=== PATIENT | female | born 1955 | race Caucasian/White ===

== ENCOUNTER → 2017-04-12 | Outpatient (REF) | payer BC ==
[~2017-04-12] MED LIST: ACID1CAP PO; ADVA115A INH; ALBU17IN INH; ASPI1TAB PO; ATOR1TAB21 PO; CALC600T57 PO; CINN500T PO; DIOV160T8 PO; DRIS50002 PO; ESTR1TAB PO; ESTR1TAB3 PO; GLIP10TA6 PO; JANU100T PO; LEVAINH INH; MAGN400T5 PO; MECL-68 PO; METF500T13 PO; MUCI600T37 PO; MULTCAP PO; OMEG100011 PO; OMEP20CA3 PO; OSPH1TAB PO; SING10TA32 PO; VITA200038 PO; VITA500C24 PO; XYZA5TAB2 PO
== END ==
LOC: M SFHCWAGY 08:28
PROVIDERS: ATTEND Nurse Practitioner Women's Health
DX: Z12.4 Encounter for screening for malignant neoplasm of cervix (principal)

== ENCOUNTER → 2017-04-14 | Outpatient (CLI) | payer BC ==
--- NOTE | 2017-04-14 09:18 | REPMRS ---
Patient History The patient states she had a clinical breast exam in 04/15 Patient is postmenopausal, has history of other cancer at age 46, and is nulliparous. Family history of prostate cancer in father at age 50 or over and colorectal cancer in mother at age 50 or over. Taking estrogen for 15 years. Digital Woman Screen Mammo: April 14, 2017 - Exam #: [id number] Bilateral CC and MLO view(s) were taken. Technologist: Jania Fried, Technologist Prior study comparison: April 27, 2016, digital woman screen mammo performed at [facility] [facility]. April 14, 2015, digital woman screen mammo performed at [facility] [employer] [facility]. FINDINGS: There are scattered fibroglandular densities. There has been no change in the appearance of the mammogram from the prior studies. There is a mild amount of residual fibroglandular tissue which is fairly symmetric. There is no interval development of dominant mass, architectural distortion, or clustered microcalcification suggestive of malignancy. ASSESSMENT: BI-RADS/ACR category 1 mammogram. Negative. Recommendation Routine screening mammogram in 1 year (for women over age 40). This mammogram was interpreted with the aid of an FDA-approved computer-aided dectection system. Electronically Signed By: Giorgio Murrell MD 04/14/17 0939
== END ==
LOC: M WHC 06:28
PROVIDERS: ATTEND Nurse Practitioner Women's Health
DX: Z12.31 Encounter for screening mammogram for malignant neoplasm of breast (principal); Z78.0 Asymptomatic menopausal state; Z79.890 Hormone replacement therapy

== ENCOUNTER → 2017-05-26 | Outpatient (REF) | payer BC ==
[2017-05-26 11:23] LABS: ALBUMIN 3.8 GM/DL (3.2-5.2); ALBUMIN/GLOBULIN RATIO 1.23 (1.00-1.93); ALKALINE PHOSPHATASE 62 U/L (45-117); ALT/SGPT 28 U/L (12-78); ANION GAP 9 MEQ/L (8-16); AST/SGOT 20 U/L (7-37); BILIRUBIN,TOTAL 0.4 MG/DL (0.2-1.0); BLOOD UREA NITROGEN 17 MG/DL (7-18); CALCIUM LEVEL 8.6 MG/DL (8.5-10.1); CARBON DIOXIDE LEVEL 29 MEQ/L (21-32); CHLORIDE LEVEL 100 MEQ/L (98-107); CHOLESTEROL LEVEL 174 MG/DL (<200); CREATININE FOR GFR 0.78 MG/DL (0.55-1.02); GLOMERULAR FILTRATION RATE > 60.0 (>51); GLUCOSE, FASTING 123 MG/DL (70-105); POTASSIUM SERUM 3.5 MEQ/L (3.5-5.1); SODIUM LEVEL 138 MEQ/L (136-145); TOTAL PROTEIN 6.9 GM/DL (6.4-8.2); TRIGLYCERIDES LEVEL 121 MG/DL (<150)
[2017-05-26 11:24] LABS: ESTIMATED AVERAGE GLUCOSE 166 MG/DL (60-110)
== END ==
LOC: M SFHCPLAZ 10:42
DX: E11.65 Type 2 diabetes mellitus with hyperglycemia (principal); E78.2 Mixed hyperlipidemia; K21.9 Gastro-esophageal reflux disease without esophagitis
CPT/HCPCS: 83735

== ENCOUNTER → 2018-04-13 | Outpatient (CLI) | payer BC | LOC: M WHC 06:37 | DX: Z12.31 Encounter for screening mammogram for malignant neoplasm of breast (principal); Z78.0 Asymptomatic menopausal state; Z92.23 Personal history of estrogen therapy; Z85.41 Personal history of malignant neoplasm of cervix uteri; Z92.89 Personal history of other medical treatment | CPT/HCPCS: 77067 ==

== ENCOUNTER → 2018-06-07 | Outpatient (REF) | payer BC ==
[~2018-06-07] MED LIST changes: -DRIS50002 PO; +DRIS50003 PO
[2018-06-07 12:48] LABS: ALBUMIN 3.7 GM/DL (3.2-5.2); ALT/SGPT 27 U/L (12-78); BILIRUBIN,TOTAL 0.5 MG/DL (0.2-1.0); BLOOD UREA NITROGEN 13 MG/DL (7-18); CALCIUM LEVEL 9.1 MG/DL (8.8-10.2); CARBON DIOXIDE LEVEL 28 MEQ/L (21-32); CHLORIDE LEVEL 96 MEQ/L (98-107); CREATININE FOR GFR 0.77 MG/DL (0.55-1.30); GLOMERULAR FILTRATION RATE > 60.0 (>45); GLUCOSE, FASTING 202 MG/DL (70-100); POTASSIUM SERUM 3.6 MEQ/L (3.5-5.1); SODIUM LEVEL 135 MEQ/L (136-145); TOTAL PROTEIN 6.7 GM/DL (6.4-8.2)
[2018-06-07 14:02] LABS: HEMOGLOBIN A1c 9.6 %
== END ==
LOC: M SFHCPLAZ 07:49
PROVIDERS: ATTEND Nurse Practitioner Family
DX: E11.65 Type 2 diabetes mellitus with hyperglycemia (principal)

== ENCOUNTER → 2018-09-26 | Outpatient (REF) | payer BC ==
[~2018-09-26] MED LIST changes: -ASPI1TAB PO; +ASPI81TA26 PO; -DIOV160T8 PO; +DIOV160T9 PO
[2018-09-26 10:15] LABS: ALT/SGPT 39 U/L (12-78); BILIRUBIN,TOTAL 0.4 MG/DL (0.2-1.0); BLOOD UREA NITROGEN 15 MG/DL (7-18); CALCIUM LEVEL 9.4 MG/DL (8.8-10.2); CARBON DIOXIDE LEVEL 28 MEQ/L (21-32); CHLORIDE LEVEL 101 MEQ/L (98-107); CREATININE FOR GFR 0.66 MG/DL (0.55-1.30); GLOMERULAR FILTRATION RATE > 60.0 (>45); GLUCOSE, FASTING 151 MG/DL (70-100); SODIUM LEVEL 138 MEQ/L (136-145)
[2018-09-26 10:48] LABS: HEMOGLOBIN A1c 7.7 %
== END ==
LOC: M SFHCPLAZ 07:43
PROVIDERS: ATTEND Nurse Practitioner Family
DX: E11.65 Type 2 diabetes mellitus with hyperglycemia (principal)

== ENCOUNTER → 2018-12-25 | Outpatient (REF) | payer BC ==
[~2018-12-25] MED LIST changes: -OMEP20CA3 PO; +OMEP20CA4 PO
[2018-12-25 12:59] LABS: BLOOD UREA NITROGEN 12 MG/DL (7-18); CALCIUM LEVEL 9.3 MG/DL (8.8-10.2); CARBON DIOXIDE LEVEL 30 MEQ/L (21-32); CHLORIDE LEVEL 100 MEQ/L (98-107); CREATININE FOR GFR 0.72 MG/DL (0.55-1.30); GLOMERULAR FILTRATION RATE > 60.0 (>45); GLUCOSE, FASTING 136 MG/DL (70-100); POTASSIUM SERUM 3.6 MEQ/L (3.5-5.1); SODIUM LEVEL 138 MEQ/L (136-145)
== END ==
LOC: M SFHCPLAZ 11:47
PROVIDERS: ATTEND Nurse Practitioner Family
DX: E11.65 Type 2 diabetes mellitus with hyperglycemia (principal); I10 Essential (primary) hypertension

== ENCOUNTER → 2019-09-06 | Outpatient (REF) | payer BC ==
[~2019-09-06] MED LIST changes: -MECL-68 PO; +MECL1TAB31 PO; +OMEP1CAP73 PO; -OMEP20CA4 PO
== END ==
LOC: M SFHCWAGY 09:53
PROVIDERS: ATTEND Nurse Practitioner Women's Health
DX: Z85.41 Personal history of malignant neoplasm of cervix uteri (principal); Z08 Encounter for follow-up examination after completed treatment for malignant neoplasm
CPT/HCPCS: 87624; G0123

== ENCOUNTER → 2019-09-13 | Outpatient (CLI) | payer BC ==
--- NOTE | 2019-09-13 12:24 | REPMRS ---
Patient History The patient states she had a clinical breast exam in August 2019.Patient is postmenopausal, has history of other cancer at age 46, and is nulliparous. Family history of prostate cancer at age 50 or over in father, colorectal cancer at age 50 or over in mother. Taking estrogen for 16 years. 3D TOMOSYNTHESIS WAS PERFORMED. [facility] lifetime risk for breast cancer is 8.2%. vOLPARA DENSITY SCORE IS B. Digital Woman Screen Mammo: September 13, 2019 - Exam #: [id number] Bilateral CC and MLO view(s) were taken. Technologist: Reyna Owens, Technologist Prior study comparison: April 13, 2018, bilateral digital woman screen mammo performed at [facility]. April 14, 2017, digital woman screen mammo performed at [facility]. FINDINGS: There are scattered fibroglandular densities. There has been no change in the appearance of the mammogram from the prior studies. There is a mild amount of residual fibroglandular tissue which is fairly symmetric. There is no interval development of dominant mass, architectural distortion, or clustered microcalcification suggestive of malignancy. Assessment: BI-RADS/ACR category 1 mammogram. Negative Mammogram. Recommendation Routine screening mammogram in 1 year (for women over age 40). This mammogram was interpreted with the aid of an FDA-approved computer-aided dectection system. Electronically Signed By: Giorgio Murrell MD 09/13/19 [id number]
== END ==
LOC: M WHC 08:40
PROVIDERS: ATTEND Nurse Practitioner Women's Health
DX: Z12.31 Encounter for screening mammogram for malignant neoplasm of breast (principal)

== ENCOUNTER → 2019-10-19 | Outpatient (REF) | payer BC ==
[2019-10-19 11:04] LABS: ALBUMIN 3.8 GM/DL (3.2-5.2); ALT/SGPT 36 U/L (12-78); BILIRUBIN,TOTAL 0.6 MG/DL (0.2-1.0); BLOOD UREA NITROGEN 9 MG/DL (7-18); CALCIUM LEVEL 9.1 MG/DL (8.8-10.2); CARBON DIOXIDE LEVEL 27 MEQ/L (21-32); CHLORIDE LEVEL 96 MEQ/L (98-107); CHOLESTEROL LEVEL 158 MG/DL (<200); CHOLESTEROL RISK RATIO 2.677 (<5); CREATININE FOR GFR 0.68 MG/DL (0.55-1.30); GLOMERULAR FILTRATION RATE > 60.0 (>45); GLUCOSE, FASTING 149 MG/DL (70-100); HDL CHOLESTEROL 59 MG/DL (>40); LDL CHOLESTEROL 81 MG/DL (<100); NON-HDL-C 99 MG/DL; POTASSIUM SERUM 4.1 MEQ/L (3.5-5.1); SODIUM LEVEL 132 MEQ/L (136-145); TOTAL PROTEIN 7.1 GM/DL (6.4-8.2); TRIGLYCERIDES LEVEL 90 MG/DL (<150)
[2019-10-19 11:48] LABS: MALB URINE SIEMENS < 5.0 MG/L; MAU/CREAT RATIO 20.8 MCG/MG (0.0-30.0)
[2019-10-19 14:49] LABS: HEMOGLOBIN A1c 8.5 %
== END ==
LOC: M PLALAB 08:14
PROVIDERS: ATTEND Nurse Practitioner Family
DX: I10 Essential (primary) hypertension (principal); E11.65 Type 2 diabetes mellitus with hyperglycemia; E78.2 Mixed hyperlipidemia; E55.9 Vitamin D deficiency, unspecified

== ENCOUNTER → 2020-04-28 | Outpatient (REF) | payer BC ==
[2020-04-28 14:10] LABS: ALBUMIN 3.8 GM/DL (3.2-5.2); ALT/SGPT 41 U/L (12-78); BILIRUBIN,TOTAL 0.4 MG/DL (0.2-1.0); BLOOD UREA NITROGEN 12 MG/DL (7-18); CALCIUM LEVEL 9.2 MG/DL (8.8-10.2); CARBON DIOXIDE LEVEL 28 MEQ/L (21-32); CHLORIDE LEVEL 99 MEQ/L (98-107); CREATININE FOR GFR 0.67 MG/DL (0.55-1.30); GLOMERULAR FILTRATION RATE > 60.0 (>45); GLUCOSE, FASTING 126 MG/DL (70-100); POTASSIUM SERUM 3.6 MEQ/L (3.5-5.1); SODIUM LEVEL 135 MEQ/L (136-145); TOTAL PROTEIN 6.8 GM/DL (6.4-8.2)
[2020-04-28 14:29] LABS: HEMOGLOBIN A1c 8.1 %
== END ==
LOC: M PLALAB 11:03
PROVIDERS: ATTEND Nurse Practitioner Family
DX: E11.65 Type 2 diabetes mellitus with hyperglycemia (principal)

== ENCOUNTER → 2020-10-22 | Outpatient (REF) | payer BC | LOC: M SFHCWAGY 12:54 | PROVIDERS: ATTEND Nurse Practitioner Women's Health | DX: Z12.72 Encounter for screening for malignant neoplasm of vagina (principal); Z85.41 Personal history of malignant neoplasm of cervix uteri ==

== ENCOUNTER → 2020-10-24 | Outpatient (CLI) | payer BC ==
--- NOTE | 2020-10-24 14:57 | REPMRS ---
Patient History The patient states she had a clinical breast exam in September 2020. Patient is postmenopausal, has history of other cancer at age 46, and is nulliparous. Family history of prostate cancer at age 50 or over in father, colorectal cancer at age 50 or over in mother. Taking estrogen for 17 years. Patient states no breast complaints. Patient has signed the MRS history sheet Digital Woman Screen Mammo: October 24, 2020 - Exam #: [id number] Bilateral CC and MLO view(s) were taken. Technologist: Jania Fried, Technologist Prior study comparison: September 13, 2019, bilateral digital woman screen mammo performed at [facility]. April 13, 2018, bilateral digital woman screen mammo performed at [facility]. April 14, 2017, digital woman screen mammo performed at [facility]. FINDINGS: There are scattered fibroglandular densities. The Volpara volumetric breast density category is:B. There has been no change in the appearance of the mammogram from the prior studies. There is a mild amount of scattered fibroglandular density which is fairly symmetric. There is no interval development of dominant mass, architectural distortion, or grouped microcalcification suggestive of malignancy. 3-D tomosynthesis shows no additional findings. Assessment: BI-RADS/ACR category 1 mammogram. Negative Mammogram. Recommendation Routine screening mammogram of both breasts in 1 year (for women over age 40). This patient's [facility] Lifetime Breast Cancer Risk is estimated at 7.8 %. This mammogram was interpreted with the aid of an FDA-approved computer-aided dectection system. Electronically Signed By: Kamlesh Duncan MD 10/24/20 8005
== END ==
LOC: M WHC 14:10
PROVIDERS: ATTEND Nurse Practitioner Women's Health
DX: Z12.31 Encounter for screening mammogram for malignant neoplasm of breast (principal); Z80.0 Family history of malignant neoplasm of digestive organs; Z80.42 Family history of malignant neoplasm of prostate; Z85.9 Personal history of malignant neoplasm, unspecified

== ENCOUNTER → 2020-12-18 | Outpatient (CLI) | payer BC ==
[2020-12-18 11:03] LABS: HEMOGLOBIN A1c 8.9 %
[2020-12-18 11:17] LABS: ALBUMIN 3.9 GM/DL (3.2-5.2); ALT/SGPT 41 U/L (12-78); BILIRUBIN,TOTAL 0.6 MG/DL (0.2-1.0); BLOOD UREA NITROGEN 10 MG/DL (7-18); CALCIUM LEVEL 9.3 MG/DL (8.8-10.2); CARBON DIOXIDE LEVEL 29 MEQ/L (21-32); CHLORIDE LEVEL 98 MEQ/L (98-107); CREATININE FOR GFR 0.62 MG/DL (0.55-1.30); GLOMERULAR FILTRATION RATE > 60.0 (>45); GLUCOSE, FASTING 206 MG/DL (70-100); SODIUM LEVEL 133 MEQ/L (136-145); TOTAL PROTEIN 6.8 GM/DL (6.4-8.2)
[2020-12-18 11:28] LABS: TOTAL 25(OH) VITAMIN D 40.4 NG/ML (30.0-100.0)
== END ==
LOC: M PLALAB 08:20
PROVIDERS: ATTEND Nurse Practitioner Family
DX: E11.65 Type 2 diabetes mellitus with hyperglycemia (principal); E55.9 Vitamin D deficiency, unspecified

== ENCOUNTER → 2021-08-12 | Outpatient (CLI) | payer BC, MEDICAID ==
[2021-08-12 13:49] LABS: BASO # 0.1 10^3/uL (0.0-0.2); BASO % 0.5 % (0.0-1.0); EOS # 0.2 10^3/uL (0.0-0.5); EOS % 2.3 % (0.0-3.0); HEMATOCRIT 38.6 % (36.0-47.0); HEMOGLOBIN 13.6 g/dl (12.0-15.5); LYMPH # 1.5 10^3/uL (1.5-5.0); LYMPH % 15.4 % (24.0-44.0); MEAN CORPUSCULAR HEMOGLOBIN 30.4 pg (27.0-33.0); MEAN CORPUSCULAR HGB CONC 35.2 g/dl (32.0-36.5); MEAN CORPUSCULAR VOLUME 86.2 fl (80.0-96.0); MONO # 0.8 10^3/uL (0.0-0.8); NEUTROPHILS # 6.9 10^3/uL (1.5-8.5); NEUTROPHILS % 73.3 % (36.0-66.0); PLATELET COUNT, AUTOMATED 220 10^3/uL (150-450); RED BLOOD COUNT 4.48 10^6/uL (4.00-5.40); WHITE BLOOD COUNT 9.4 10^3/uL (4.0-10.0)
[2021-08-12 13:56] LABS: HEMOGLOBIN A1c 11.6 %
[2021-08-12 14:05] LABS: ALBUMIN 3.8 GM/DL (3.2-5.2); ALT/SGPT 39 U/L (12-78); BILIRUBIN,TOTAL 0.6 MG/DL (0.2-1.0); BLOOD UREA NITROGEN 14 MG/DL (7-18); CALCIUM LEVEL 9.2 MG/DL (8.8-10.2); CARBON DIOXIDE LEVEL 31 MEQ/L (21-32); CHLORIDE LEVEL 99 MEQ/L (98-107); CHOLESTEROL LEVEL 158 MG/DL (<200); CREATININE FOR GFR 0.63 MG/DL (0.55-1.30); FREE T4 1.41 NG/DL (0.76-1.46); GLOMERULAR FILTRATION RATE > 60.0 (>45); GLUCOSE, FASTING 258 MG/DL (70-100); HDL CHOLESTEROL 61 MG/DL (>40); LDL CHOLESTEROL 82 MG/DL (<100); NON-HDL-C 97 MG/DL; POTASSIUM SERUM 3.2 MEQ/L (3.5-5.1); SODIUM LEVEL 137 MEQ/L (136-145); TOTAL PROTEIN 6.9 GM/DL (6.4-8.2); TRIGLYCERIDES LEVEL 77 MG/DL (<150)
[2021-08-12 14:07] LABS: TOTAL 25(OH) VITAMIN D 39.4 NG/ML (30.0-100.0); VITAMIN B12 LEVEL 170 PG/ML (247-911)
[2021-08-12 14:33] LABS: CREATININE, URINE 76.5 MG/DL; MALB URINE SIEMENS 13.7 MG/L; MAU/CREAT RATIO 17.9 MCG/MG (0.0-30.0)
== END ==
LOC: M PLALAB 11:45
PROVIDERS: ATTEND Physician Assistant
DX: I10 Essential (primary) hypertension (principal); E11.9 Type 2 diabetes mellitus without complications; E78.2 Mixed hyperlipidemia; E55.9 Vitamin D deficiency, unspecified

== ENCOUNTER → 2021-10-12 | Outpatient (REF) | payer BC, MEDICAID, OTHER ==
[2021-10-12 18:34] LABS: BLOOD UREA NITROGEN 13 MG/DL (7-18); CALCIUM LEVEL 9.6 MG/DL (8.8-10.2); CARBON DIOXIDE LEVEL 28 MEQ/L (21-32); CHLORIDE LEVEL 99 MEQ/L (98-107); CREATININE FOR GFR 0.77 MG/DL (0.55-1.30); GLOMERULAR FILTRATION RATE > 60.0 (>45); GLUCOSE, FASTING 353 MG/DL (70-100); POTASSIUM SERUM 3.5 MEQ/L (3.5-5.1); SODIUM LEVEL 135 MEQ/L (136-145)
[2021-10-12 18:46] LABS: VITAMIN B12 LEVEL 557 PG/ML (247-911)
[2021-10-12 19:03] LABS: HEMOGLOBIN A1c 9.8 %
== END ==
LOC: M SFHCPLAZ 15:40 → M WUC 15:40
PROVIDERS: ATTEND Physician Assistant
DX: I10 Essential (primary) hypertension (principal); E53.8 Deficiency of other specified B group vitamins; E11.65 Type 2 diabetes mellitus with hyperglycemia

== ENCOUNTER → 2021-12-15 | Outpatient (CLI) | payer BC, MEDICAID, OTHER ==
[2021-12-15 13:13] LABS: BLOOD UREA NITROGEN 15 MG/DL (7-18); CALCIUM LEVEL 9.3 MG/DL (8.8-10.2); CARBON DIOXIDE LEVEL 29 MEQ/L (21-32); CHLORIDE LEVEL 100 MEQ/L (98-107); CREATININE FOR GFR 0.68 MG/DL (0.55-1.30); GLOMERULAR FILTRATION RATE > 60.0 (>45); GLUCOSE, FASTING 231 MG/DL (70-100); POTASSIUM SERUM 3.8 MEQ/L (3.5-5.1); SODIUM LEVEL 133 MEQ/L (136-145)
[2021-12-15 13:25] LABS: HEMOGLOBIN A1c 8.6 %
[2021-12-15 13:38] LABS: VITAMIN B12 LEVEL 618 PG/ML (247-911)
== END ==
LOC: M WUC 09:53
PROVIDERS: ATTEND Physician Assistant
DX: I10 Essential (primary) hypertension (principal); E11.65 Type 2 diabetes mellitus with hyperglycemia; E53.8 Deficiency of other specified B group vitamins

== ENCOUNTER → 2021-12-21 | Outpatient (CLI) | payer OTHER | LOC: M WHC 10:53 | PROVIDERS: ATTEND Obstetrics & Gynecology | DX: Z12.31 Encounter for screening mammogram for malignant neoplasm of breast (principal) ==

== ENCOUNTER → 2021-12-21 | Outpatient (REF) | payer OTHER | LOC: M SFHCWAGY 13:05 | PROVIDERS: ATTEND Obstetrics & Gynecology | DX: Z12.72 Encounter for screening for malignant neoplasm of vagina (principal) ==

== ENCOUNTER → 2022-03-19 | Outpatient (CLI) | payer OTHER ==
[2022-03-19 17:48] LABS: HEMOGLOBIN A1c 6.9 %
[2022-03-19 18:08] LABS: ALBUMIN 3.9 GM/DL (3.2-5.2); ALT/SGPT 39 U/L (12-78); BILIRUBIN,TOTAL 0.5 MG/DL (0.2-1.0); BLOOD UREA NITROGEN 11 MG/DL (7-18); CALCIUM LEVEL 9.5 MG/DL (8.8-10.2); CARBON DIOXIDE LEVEL 29 MEQ/L (21-32); CHLORIDE LEVEL 98 MEQ/L (98-107); CREATININE FOR GFR 0.62 MG/DL (0.55-1.30); GLOMERULAR FILTRATION RATE > 60.0 (>45); GLUCOSE, FASTING 160 MG/DL (70-100); POTASSIUM SERUM 3.9 MEQ/L (3.5-5.1); SODIUM LEVEL 135 MEQ/L (136-145)
[2022-03-19 18:18] LABS: BASO % 0.3 % (0.0-1.0); EOS # 0.2 10^3/uL (0.0-0.5); EOS % 2.4 % (0.0-3.0); HEMATOCRIT 39.7 % (36.0-47.0); HEMOGLOBIN 13.6 g/dl (12.0-15.5); LYMPH # 1.3 10^3/uL (1.5-5.0); LYMPH % 13.8 % (24.0-44.0); MEAN CORPUSCULAR HEMOGLOBIN 30.4 pg (27.0-33.0); MEAN CORPUSCULAR HGB CONC 34.3 g/dl (32.0-36.5); MEAN CORPUSCULAR VOLUME 88.8 fl (80.0-96.0); MONO # 0.6 10^3/uL (0.0-0.8); MONO % 6.5 % (2.0-8.0); NEUTROPHILS # 7.4 10^3/uL (1.5-8.5); NEUTROPHILS % 76.8 % (36.0-66.0); PLATELET COUNT, AUTOMATED 256 10^3/uL (150-450); RED BLOOD COUNT 4.47 10^6/uL (4.00-5.40); WHITE BLOOD COUNT 9.7 10^3/uL (4.0-10.0)
[2022-03-19 18:29] LABS: CREATININE, URINE 78.4 MG/DL; MALB URINE SIEMENS 10.1 MG/L; MAU/CREAT RATIO 12.8 MCG/MG (0.0-30.0)
[2022-03-19 19:05] LABS: TOTAL 25(OH) VITAMIN D 33.9 NG/ML (30.0-100.0); VITAMIN B12 LEVEL 440 PG/ML (247-911)
== END ==
LOC: M WUC 12:55
PROVIDERS: ATTEND Physician Assistant
DX: I10 Essential (primary) hypertension (principal); E11.65 Type 2 diabetes mellitus with hyperglycemia; E53.8 Deficiency of other specified B group vitamins; J30.2 Other seasonal allergic rhinitis; E55.9 Vitamin D deficiency, unspecified

== ENCOUNTER 2022-05-03 07:32 | Day surgery (SDC) | payer OTHER ==
[~2022-05-03] VITALS: Ht 162.6 cm; Wt 80.9 kg
[~2022-05-03 07:32] MED LIST changes: +ALBU2.5V10 PO; +AMLO1TAB24 PO; +B-122500 PO; +CALC600C3 PO; +FLAX1CAP5 PO; +GLIP10TA18 PO; +IBUP-1022 PO; +LOSA100T5 PO; +MAGN250T7 PO; +METF-839 PO; +METH-1165 PO; +MONT10TA97 PO; +NS 1,000 ML IV ONE; +OMEP-173 PO; +TRUL0.5I SC; +VITA100093 PO; +VITMTA PO
[2022-05-03] MEDS ORDERED: ALLE180T33 PO (08:02)
[2022-05-03] MEDS ORDERED: GUAI400T41 PO (08:02)
[2022-05-03] MEDS ORDERED: DOCU-153 PO (08:02)
[2022-05-03] MEDS ORDERED: propofoL 500 MG/50 ML VIAL As Ordered ONE (08:04)
[2022-05-03 09:24] VITALS: BP 161/85
== END 2022-05-03 09:45 | disposition home or self-care (01) ==
LOC: M OPP 07:32
PROVIDERS: ATTEND Internal Medicine Gastroenterology
DX: Z12.11 Encounter for screening for malignant neoplasm of colon (principal); Z86.010 Personal history of colon polyps; Z80.0 Family history of malignant neoplasm of digestive organs; D17.5 Benign lipomatous neoplasm of intra-abdominal organs; K55.20 Angiodysplasia of colon without hemorrhage; K57.30 Diverticulosis of large intestine without perforation or abscess without bleeding; E11.9 Type 2 diabetes mellitus without complications; J45.909 Unspecified asthma, uncomplicated; Z79.1 Long term (current) use of non-steroidal anti-inflammatories (NSAID); Z79.51 Long term (current) use of inhaled steroids; Z79.899 Other long term (current) drug therapy; Z79.84 Long term (current) use of oral hypoglycemic drugs